=== PATIENT | female | born 1975 | race Caucasian/White ===

== ENCOUNTER → 2019-07-06 | Outpatient (CLI) | payer OTHER ==
[~2019-07-06] MED LIST: CYCL10 PO; HYDACE5 PO; METPRE4DP PO; RXCYCL10 PO
== END ==
LOC: LAB SHORT 13:42 → LAB 13:42
PROVIDERS: Student in an Organized Health Care Education/Training Program
DX: Z01.419 Encounter for gynecological examination (general) (routine) without abnormal findings (principal)
CPT/HCPCS: G0145

== ENCOUNTER → 2023-12-22 | Outpatient (CLI) | payer OTHER ==
[~2023-12-22] MED LIST changes: +ALBU2.5V5 INH; +AZIT500 PO; +Cefpodoxime Pr100 MG PO
[2023-12-22 09:25] LABS: BASOPHILS ABSOLUTE AUTO 0.02 K/mm3 (0.00-0.23); BASOPHILS PERCENT AUTO 0 % (0-2); EOSINOPHILS ABSOLUTE AUTO 0.15 K/mm3 (0.00-0.68); EOSINOPHILS PERCENT AUTO 1 % (0-6); Hemoglobin 13.2 g/dL (11.5-16.0); Mean Corpuscular HGB 28.8 pg (26.0-34.0); Mean Corpuscular Volume 87 fL (80-100); Mean Platelet Volume 9.6 fL (9.1-12.4); Platelet Count 354 K/mm3 (150-400); RDW Coefficient Variation 13.2 % (11.7-14.2); RDW Standard Deviation 41.8 fL (35.1-46.3); Red Blood Cell Count 4.58 M/mm3 (3.80-5.20); White Blood Cell Count 10.88 K/mm3 (4.00-11.30)
[2023-12-22 09:35] LABS: Albumin, Blood 3.3 g/dL (3.4-5.0); Albumin/Globulin Ratio 0.7 (0.8-1.8); Bilirubin, Total 0.5 mg/dL (0.1-1.0); Calcium, Blood 8.9 mg/dL (8.5-10.1); Creatinine, Blood 0.73 mg/dL (0.40-1.00); Globulin, Blood 4.7 g/dL (2.2-4.0); Potassium, Blood 3.4 mmol/L (3.5-5.5)
[2023-12-22 09:44] LABS: IMMATURE GRAN ABSOLUTE AUTO 0.03 K/mm3 (0.00-0.10); IMMATURE GRAN PERCENT AUTO 0 % (0-1); LYMPHOCYTES PERCENT AUTO 21 % (21-46); MONOCYTES ABSOLUTE AUTO 0.41 K/mm3 (0.16-1.47); MONOCYTES PERCENT AUTO 4 % (4-13); NEUTROPHILS ABSOLUTE AUTO 7.97 K/mm3 (1.96-9.15); NEUTROPHILS PERCENT AUTO 73 % (41-73)
== END ==
LOC: LAB SHORT 09:11 → LAB 09:11
PROVIDERS: Emergency Medicine
DX: R06.00 Dyspnea, unspecified (principal)
CPT/HCPCS: 80053; 85025; 85379

== ENCOUNTER 2025-02-15 16:03 | Emergency (ER) | payer OTHER ==
[~2025-02-15] VITALS: Ht 170.2 cm; Wt 180.5 kg
[2025-02-15 16:40] LABS: BASOPHILS ABSOLUTE AUTO 0.03 K/mm3 (0.00-0.23); BASOPHILS PERCENT AUTO 0 % (0-2); EOSINOPHILS ABSOLUTE AUTO 0.09 K/mm3 (0.00-0.68); EOSINOPHILS PERCENT AUTO 1 % (0-6); Hematocrit 40.4 % (33.0-51.0); Hemoglobin 12.9 g/dL (11.5-16.0); IMMATURE GRAN ABSOLUTE AUTO 0.02 K/mm3 (0.00-0.10); IMMATURE GRAN PERCENT AUTO 0 % (0-1); LYMPHOCYTES ABSOLUTE AUTO 2.57 K/mm3 (0.84-5.20); LYMPHOCYTES PERCENT AUTO 24 % (21-46); MONOCYTES ABSOLUTE AUTO 0.48 K/mm3 (0.16-1.47); MONOCYTES PERCENT AUTO 4 % (4-13); Mean Corpuscular HGB Conc 31.9 g/dL (31.5-36.5); Mean Corpuscular Volume 85 fL (80-100); Mean Platelet Volume 9.2 fL (9.1-12.4); NEUTROPHILS PERCENT AUTO 71 % (41-73); Platelet Count 389 K/mm3 (150-400); RDW Coefficient Variation 14.7 % (11.7-14.2); RDW Standard Deviation 45.3 fL (35.1-46.3); Red Blood Cell Count 4.77 M/mm3 (3.80-5.20); White Blood Cell Count 10.79 K/mm3 (4.00-11.30)
[2025-02-15 16:59] LABS: Albumin, Blood 3.9 g/dL (3.4-5.0); Bilirubin, Total 0.7 mg/dL (0.1-1.0); Bun/Creatinine Ratio 18.1 (12.0-20.0); Calcium, Blood 9.2 mg/dL (8.5-10.1); Creatinine, Blood 0.72 mg/dL (0.40-1.00); Globulin, Blood 3.8 g/dL (2.2-4.0); Potassium, Blood 3.8 mmol/L (3.5-5.5); Total Protein, Blood 7.7 g/dL (6.4-8.2)
[2025-02-15 17:40] LABS: Source, Urine Clean Catch
[2025-02-15 17:45] LABS: Appearance, Urine Clear (Clear); Bilirubin, Urine Neg (Neg); Blood, Urine 1+ (Neg); Color, Urine Yellow (P-Yellow); Glucose Qualitative, Urine Neg (Neg); Ketones, Urine Neg (Neg); Leukocyte Esterase, Urine 2+ (Neg); Nitrite, Urine Neg (Neg); Protein, Urine 1+ (Neg); Specific Gravity, Urine 1.015 (1.003-1.022); Urobilinogen, Urine NORM (Normal); pH, Urine 6.5 (5.0-8.0)
[2025-02-15 18:02] LABS: Bacteria Few /hpf; Red Blood Cells, Urine 0-2 /hpf (0-2); Squamous Epithelial Cells Rare /hpf (Few)
[2025-02-15] MEDS ORDERED: Crestor40 MG PO (19:44)
[2025-02-15] MEDS ORDERED: OLME5TAB (19:44)
[2025-02-15] MEDS ORDERED: OxyCODONE 5 mg/Acetamin 325 mg TABLET PO ONE (19:55)
[2025-02-15] MEDS ORDERED: Cephalexin Monohydrate 500 MG Cap PO ONE (19:55)
[2025-02-15] MEDS ORDERED: CEPH500 PO (19:58)
[2025-02-15 20:00] VITALS: BP 135/82
[2025-02-15] MEDS ORDERED: RX Prepack 6 Tabs Oxycodone 5mg UD ONE (20:00)
== END 2025-02-15 20:16 | disposition home or self-care (01) ==
LOC: ER 16:03
PROVIDERS: Physician Assistant
DX: R10.9 Unspecified abdominal pain (principal); R11.0 Nausea; R30.0 Dysuria; R19.7 Diarrhea, unspecified
CPT/HCPCS: 74177; 80053; 81001; 85025; 87086; 87147; 99284-25; A9270; Q9967